=== PATIENT | female | born 1955 | race Two or more races ===

== ENCOUNTER 2023-10-13 13:02 | Inpatient (IN) | payer OTHER, MEDICAID ==
[~2023-10-13] VITALS: Ht 162.6 cm; Wt 68.0 kg
[2023-10-13 13:25] LABS: Basophils # (auto) 0 10 ^3/uL (0-0.2); Basophils % (auto) 0.2 % (0.0-2.0); Eosinophils # (auto) 0.1 10 ^3/uL (0-0.8); Eosinophils % (auto) 1.9 % (0.0-7.0); Hemoglobin 13.2 g/dL (12.2-16.2); Lymphocytes # (auto) 1.8 10 ^3/uL (0.4-5.4); Lymphocytes % (auto) 27.7 % (10.0-50.0); Mean Corpuscular Hgb Conc. 33.8 g/dL (32.0-36.0); Mean Corpuscular Volume 94.7 fL (80.0-100.0); Monocytes # (auto) 0.4 10 ^3/uL (0-1.3); Monocytes % (auto) 5.3 % (0.0-12.0); Neutrophils # (auto) 4.3 10 ^3/uL (1.6-8.6); Neutrophils % (auto) 64.9 % (37.0-80.0); Red Blood Cells 4.12 10^6/uL (4.0-5.20); Red Cell Distribution Width 12.5 % (11.8-14.3); White Blood Cell 6.6 10^3/uL (4.4-10.8)
[2023-10-13 13:47] LABS: Magnesium 1.7 mg/dL (1.6-2.6)
[2023-10-13 13:49] LABS: Alanine Aminotransferase 52 U/L (7-40); Albumin 4.3 g/dL (3.2-4.8); Alkaline Phosphatase 95 U/L (46-116); Anion Gap 7 (5-15); Aspartate Aminotransferase 35 U/L (13-40); BUN/Creatinine Ratio 23.1 (10.0-20.0); Bilirubin, Total 0.3 mg/dL (0.2-1.0); Blood Urea Nitrogen 18 mg/dL (9-23); Calcium 9.6 mg/dL (8.5-10.1); Carbon Dioxide 26 mmol/L (20-30); Chloride 106 mmol/L (98-107); Glucose 126 mg/dL (74-106); Potassium 3.3 mmol/L (3.5-5.1); Sodium 139 mmol/L (136-145); Total Protein 7.2 g/dL (5.7-8.2)
[2023-10-13] MEDS ORDERED: NITROGLYCERIN 2% OINT 1GM PKG TD ONE (14:30)
[2023-10-13] MEDS ORDERED: NITROGLYCERIN 0.4 MG SL TAB SL PRN (14:45)
[2023-10-13] MEDS ORDERED: ASPirin 325 MG TAB PO ONE (14:45)
[2023-10-13] MEDS ORDERED: MORPHINE SULFATE INJ 2 MG/ml SYRG IV PRN (14:45)
[2023-10-13] MEDS ORDERED: hydrALAZINE HCL 20 MG/ML VL IV PRN (14:45)
[2023-10-13] MEDS ORDERED: POTASSIUM EFFERVESENT TAB 25 MEQ PO ONE (14:45)
[2023-10-13] MEDS ORDERED: ACETAMINOPHEN 325 MG TAB PO PRN (14:45)
[2023-10-13 15:30] VITALS: PULSE 79; RESP 16; O2SAT 96
[2023-10-13] MEDS: SODIUM CHLORIDE 0.9% 1,000 ML IV SCH (16:07)
[2023-10-13 21:37] LABS: COVID19 ANTIGEN SOFIA FIA NEGATIVE (NEGATIVE)
[2023-10-13] MEDS: MECLIZINE HCL 25 MG TAB PO SCH (22:20)
[2023-10-13] MEDS: LISINOPRIL 10 MG TAB PO SCH (22:21)
[2023-10-13] MEDS: ATORVASTATIN 20 MG TAB PO SCH (22:22)
[2023-10-13 23:24] VITALS: BP 139/74; PULSE 61; RESP 18; TEMP 98.1; O2SAT 97
[2023-10-13] MEDS ORDERED: MECL-126 PO (23:36)
[2023-10-13] MEDS ORDERED: LISI-275 PO (23:36)
[2023-10-13] MEDS ORDERED: ATOR10TA52 PO (23:36)
[2023-10-14] VITALS (8 sets, daily range): BP systolic 119–155; BP diastolic 64–104; PULSE 52–66; RESP 16–19; TEMP 97.7–98.3; O2SAT 94–98
[2023-10-14 00:02] LABS: Urine Bacteria FEW /hpf (None Seen); Urine Blood Negative /uL (Negative); Urine Clarity Clear (Clear); Urine Color Colorless (Yellow); Urine Protein, UAD Negative (Negative); Urine Specific Gravity 1.008 (1.001-1.035); Urine Urobilinogen Normal (Negative); Urine WBC <1 /hpf (0 - 5); Urine pH 7.5 (5.0-8.0)
[2023-10-14 00:03] LABS: Amphetamine Screen, Urine Neg (NEGATIVE); Benzodiazephine Screen, Urine Neg (NEGATIVE)
[2023-10-14 00:04] LABS: Barbiturate Scree,Urine Neg (NEGATIVE); Cannabinoid Screen, Urine Neg (NEGATIVE); Cocaine Screen, Urine Neg (NEGATIVE); Opiate Scree,Urine Neg (NEGATIVE); Phencyclidine Screen, Urine Neg (NEGATIVE)
[2023-10-14 05:47] LABS: Basophils # (auto) 0 10 ^3/uL (0-0.2); Basophils % (auto) 0.4 % (0.0-2.0); Eosinophils # (auto) 0.2 10 ^3/uL (0-0.8); Eosinophils % (auto) 4.1 % (0.0-7.0); Hematocrit 36.3 % (36.0-46.0); Hemoglobin 12.5 g/dL (12.2-16.2); Lymphocytes # (auto) 2.8 10 ^3/uL (0.4-5.4); Lymphocytes % (auto) 47.8 % (10.0-50.0); Mean Corpuscular Hemoglobin 32.6 pg (28.0-32.0); Mean Corpuscular Hgb Conc. 34.5 g/dL (32.0-36.0); Mean Corpuscular Volume 94.5 fL (80.0-100.0); Monocytes # (auto) 0.6 10 ^3/uL (0-1.3); Monocytes % (auto) 9.4 % (0.0-12.0); Neutrophils # (auto) 2.2 10 ^3/uL (1.6-8.6); Neutrophils % (auto) 38.3 % (37.0-80.0); Nucleated Red Blood Cells % 0.1 %; Red Blood Cells 3.84 10^6/uL (4.0-5.20); Red Cell Distribution Width 12.2 % (11.8-14.3); White Blood Cell 5.9 10^3/uL (4.4-10.8)
[2023-10-14 06:00] LABS: Alanine Aminotransferase 43 U/L (7-40); Albumin 3.8 g/dL (3.2-4.8); Aspartate Aminotransferase 28 U/L (13-40)
[2023-10-14 06:01] LABS: Total Protein 6.2 g/dL (5.7-8.2)
[2023-10-14 06:34] LABS: Chloride 109 mmol/L (98-107); Potassium 3.3 mmol/L (3.5-5.1); Sodium 142 mmol/L (136-145)
[2023-10-14 06:37] LABS: Anion Gap 8 (5-15); Calcium 9.3 mg/dL (8.5-10.1); Carbon Dioxide 25 mmol/L (20-30)
[2023-10-14 06:42] LABS: Alkaline Phosphatase 80 U/L (46-116); BUN/Creatinine Ratio 13.1 (10.0-20.0); Blood Urea Nitrogen 11 mg/dL (9-23); Glucose 111 mg/dL (74-106)
[2023-10-14 07:07] LABS: Bilirubin, Total 0.4 mg/dL (0.2-1.0)
[2023-10-14] MEDS: ASPirin 81 mg TAB PO SCH (09:18)
[2023-10-14] MEDS: MECLIZINE HCL 25 MG TAB PO SCH ×2 (09:19→21:05)
[2023-10-14] MEDS: ENOXAPARIN SOD 40 MG/0.4 ML SYRINGE SC SCH (09:19)
[2023-10-14] MEDS: LISINOPRIL 10 MG TAB PO SCH ×2 (09:19→21:05)
[2023-10-14] MEDS: SODIUM CHLORIDE 0.9% 1,000 ML IV SCH (09:24)
[2023-10-14 13:41] LABS: Free T4 (Free Thyroxine) 1.06 ng/dL (0.89-1.76)
[2023-10-14 13:43] LABS: Folate (Folic Acid) > 24.00 ng/mL (>5.38)
[2023-10-14 13:44] LABS: Magnesium 1.7 mg/dL (1.6-2.6)
[2023-10-14] MEDS ORDERED: POTASSIUM EFFERVESENT TAB 25 MEQ PO ONE (14:00)
[2023-10-14] MEDS: ATORVASTATIN 20 MG TAB PO SCH (21:05)
[2023-10-15 06:03] VITALS: BP 117/66; PULSE 55; RESP 16; TEMP 97.9; O2SAT 96
[2023-10-15 06:05] VITALS: BP 101/62; PULSE 63; TEMP 97.9; O2SAT 92
[2023-10-15 06:07] VITALS: BP 107/61; PULSE 50; RESP 18; TEMP 97.9; O2SAT 96
[2023-10-15 08:00] VITALS: PULSE 46; PULSE 78; RESP 18; O2SAT 96
[2023-10-15] MEDS ORDERED: ADENOSINE 57 MG in GIVE UN-DILUTED 0 ML IV ONE (08:00)
[2023-10-15 09:00] VITALS: BP 119/71; PULSE 52; RESP 17; TEMP 99.4; O2SAT 96
[2023-10-15] MEDS: ASPirin 81 mg TAB PO SCH (09:54)
[2023-10-15] MEDS: LISINOPRIL 10 MG TAB PO SCH (09:55)
[2023-10-15] MEDS: ENOXAPARIN SOD 40 MG/0.4 ML SYRINGE SC SCH ×2 (09:55→10:00)
[2023-10-15] MEDS: MECLIZINE HCL 25 MG TAB PO SCH (09:55)
[2023-10-15] MEDS ORDERED: GAB100C PO (12:48)
[2023-10-15] MEDS ORDERED: LISI10TA34 PO (12:48)
[2023-10-15 13:00] VITALS: BP 138/79; PULSE 61; RESP 17; TEMP 98.1; O2SAT 96
== END 2023-10-15 17:40 | disposition home or self-care (01) | DRG 313 ==
LOC: ER 13:02 → TELE 14:43 → TELE-CENTR 23:50
PROVIDERS: ADMIT Hospitalist; ATTEND Hospitalist
DX: R07.89 Other chest pain (principal); I10 Essential (primary) hypertension; E87.6 Hypokalemia; E03.9 Hypothyroidism, unspecified; M48.02 Spinal stenosis, cervical region; Z20.822 Contact with and (suspected) exposure to COVID-19; M47.812 Spondylosis without myelopathy or radiculopathy, cervical region; M54.12 Radiculopathy, cervical region; R51.9 Headache, unspecified; E78.5 Hyperlipidemia, unspecified; S00.03XA Contusion of scalp, initial encounter; X58.XXXA Exposure to other specified factors, initial encounter; Y93.89 Activity, other specified; Y92.89 Other specified places as the place of occurrence of the external cause; Y99.8 Other external cause status; Z82.49 Family history of ischemic heart disease and other diseases of the circulatory system; Z83.3 Family history of diabetes mellitus; Z90.49 Acquired absence of other specified parts of digestive tract
CPT/HCPCS: 36415; 70450; 70551; 71045; 72141; 78452; 80053; 80061; 80307; 81001; 82607; 82746; 83036; 83690; 83735; 84132; 84439; 84443; 84484; 85025; 87086; 87426; 93005; 93017; 93306; 93886; 97163; G0378; J0153